=== PATIENT | female | born 1960 | race Two or more races ===

== ENCOUNTER → 2024-03-23 | Outpatient (CLI) | payer BC, SELFPAY ==
[2024-03-23 15:06] LABS: Misc Send Out* See Sep Rpt
== END | disposition home or self-care (01) ==
LOC: SLDO 14:50
PROVIDERS: Referring Provider Specialist; Visit Provider Specialist
DX: F11.20 Opioid dependence, uncomplicated (principal)
CPT/HCPCS: 80373; G0480

== ENCOUNTER → 2024-07-16 | Outpatient (CLI) | payer BC, SELFPAY ==
[2024-07-16 17:38] LABS: Basophils % (Auto) 1 % (0-2.5); Eosinophils # (Auto) 0.1 Thou/mm3 (0.0-0.5); Eosinophils % (Auto) 2 % (0-10); Hematocrit 34.9 % (36.0-46.0); Hemoglobin 11.6 g/dL (12.0-16.0); Immature Granulocytes % (Auto) 0 % (0-0); Immature Granulocytes Auto 0.02 Thou/mm3 (0.00-0.00); Lymphocytes # (Auto) 2.3 Thou/mm3 (1.0-4.8); Lymphocytes % (Auto) 33 % (10-50); Mean Corpuscular HGB Conc 33.2 g/dl (31.0-37.0); Mean Corpuscular Hemoglobin 29.4 pg (25.0-35.0); Mean Corpuscular Volume 88 fL (80-100); Monocytes # (Auto) 0.6 Thou/mm3 (0.0-0.8); Monocytes % (Auto) 9 % (0-12); Neutrophils # (Auto) 3.7 Thou/mm3 (1.8-7.7); Neutrophils % (Auto) 55 % (37-80); Nucleated Red Blood Cell % 0 /100 WBC (0); Platelet Count 293 Thou/mm3 (140-440); RDW Standard Deviation 43.2 fL (36.4-46.3); Red Blood Count 3.95 Miln/mm3 (4.00-5.20); White Blood Count 6.8 Thou/mm3 (3.6-11.0)
[2024-07-16 17:58] LABS: Iron 52 mcg/dL (50-170); Percent Iron Saturation 16 % (20-55); Total Iron Binding Capacity 306 mcg/dL (250-425); Unsaturated Iron Binding 254 (225-295)
[2024-07-16 18:01] LABS: Parathyroid Hormone Intact 121.8 pg/ml (18.5-88.0)
[2024-07-16 18:04] LABS: Alanine Aminotransferase 23 U/L (10-49); Albumin, Serum 4.5 gm/dL (3.4-4.8); Albumin/Globulin Ratio 1.6 (1.2-2.2); Alkaline Phosphatase 97 U/L (46-116); Anion Gap 8 (7-16); Aspartate Amino Transferase 20 U/L (0-34); BUN/Creatinine Ratio 16 Ratio (12-20); Bilirubin,Total 0.6 mg/dL (0.3-1.2); Blood Urea Nitrogen 16 mg/dL (9-23); Calcium 9.5 mg/dL (8.3-10.6); Calcium (Corrected) 9.5 mg/dL (8.5-10.1); Carbon Dioxide 30.1 mMol/L (20.0-31.0); Cardiac Risk Estimate 2.6 RATIO (3.7-5.6); Chloride 102 mMol/L (98-107); Cholesterol 175 mg/dL (132-200); Free T3 3.6 pg/mL (2.3-4.2); Free T4 (Free Thyroxine) 1.04 ng/dL (0.89-1.76); Globulin 2.8 gm/dL (2.3-3.5); Glucose 90 mg/dL (74-106); HDL Cholesterol 68 mg/dL (40-60); LDL Cholesterol,Calculated 85 mg/dL (0-130); Osmolality,Calculated 280 (275-295); Potassium 3.8 mMol/L (3.4-5.1); Sodium 140 mMol/L (136-145); Thyroid Stimulating Hormone 1.69 uIU/mL (0.55-4.78); Total Protein 7.3 gm/dL (5.7-8.2); Triglycerides 109 mg/dL (30-150); eGFR > 60 See Note
[2024-07-16 18:05] LABS: Folate 18.39 ng/mL (>5.38); Vitamin B12 743 pg/mL (211-911); Vitamin D 25 Hydroxy Total 26.8 ng/mL (7.3-40.2)
== END | disposition home or self-care (01) ==
LOC: COPL 16:41
PROVIDERS: PCP Specialist; Referring Provider Nurse Practitioner Family; Visit Provider Nurse Practitioner Family
DX: L63.8 Other alopecia areata (principal); E03.8 Other specified hypothyroidism; I10 Essential (primary) hypertension; E78.2 Mixed hyperlipidemia; E83.51 Hypocalcemia; D64.9 Anemia, unspecified; G90.09 Other idiopathic peripheral autonomic neuropathy
CPT/HCPCS: 36415; 80053; 80061; 82306; 82607; 82746; 83540; 83550; 83970; 84439; 84443; 84481; 85025

== ENCOUNTER → 2025-05-04 | Outpatient (CLI) | payer BC, SELFPAY ==
[2025-05-04 16:13] LABS: Urea Breath Test Positive (Negative)
== END | disposition home or self-care (01) ==
LOC: COPL 13:43
PROVIDERS: PCP Specialist; Referring Provider Specialist; Visit Provider Specialist
DX: Z86.19 Personal history of other infectious and parasitic diseases (principal)
CPT/HCPCS: 83013; 83014